=== PATIENT | female | born 1980 | race Caucasian/White ===

== ENCOUNTER 2018-05-07 12:22 | Emergency (ER) | payer OTHER ==
[~2018-05-07] VITALS: Ht 175.3 cm; Wt 76.3 kg
[2018-05-07] MEDS ORDERED: MOTRIN800 MG PO (13:56)
[2018-05-07 14:03] VITALS: BP 127/74
== END 2018-05-07 14:05 | disposition home or self-care (01) ==
LOC: EME 12:22
DX: S90.31XA Contusion of right foot, initial encounter (principal); W20.8XXA Other cause of strike by thrown, projected or falling object, initial encounter
CPT/HCPCS: 73630; 99281; 99283